=== PATIENT | male | born 1965 | race Caucasian/White ===

== ENCOUNTER 2018-08-08 10:57 | Observation (INO) | payer MEDICAID, OTHER ==
[~2018-08-08] VITALS: Ht 160 cm; Wt 86.2 kg
--- NOTE | 2018-08-08 11:18 | ERD ---
ER Documentation Chief Complaint Chief Complaint chest pain x2 days, sent fr clinic today HPI The patient is a 53-year-old male, presenting to the ER because of left-sided chest pain radiating to the left sided neck, denies similar symptoms previously, worse with walking, associated with dyspnea upon lying down. He went to the [facility] who sent him to the emergency department. He denies chest pain with vomiting/diaphoresis, dyspnea, abdominal pain, vomiting, dysuria, diarrhea. He does not smoke nor drink Past medical history: Cirrhosis, thrombocytopenia Past surgical history: Eye surgery ROS All systems reviewed and are negative except as per history of present illness. Medications Home Meds No Active Prescriptions or Reported Meds Allergies Allergies: Coded Allergies: No Known Allergy (Unverified , 08/08/18) Physical Exam Vitals Vital Signs Date Temp Pulse Resp B/P (MAP) Pulse Ox O2 O2 Flow FiO2 Time Delivery Rate 08/08/18 72 26 116/75 94 Nasal 2.0 12:12 (89) Cannula 08/08/18 Nasal 2 11:35 Cannula 08/08/18 97.3 78 20 127/65 92 11:03 (85) Physical Exam Const: No acute distress. Head: Atraumatic. Eyes: Normal Conjunctiva. ENT: Normal External Ears, Nose and Mouth. Neck: Full range of motion. No meningismus. Resp: Clear to auscultation bilaterally. Cardio: Regular rate and rhythm. Left sided chest pain with palpation Abd: Soft, non distended, normal bowel sounds, non tender. Skin: No petechiae or rashes. Back: No midline or flank tenderness. Ext: No cyanosis, or edema. Neur: Awake and alert. No focal deficit Psych: Normal Mood and Affect. Result Diagram: 08/08/18 1120 08/08/18 1235 Results 24 hrs Laboratory Tests Test 08/08/18 11:20 08/08/18 12:35 White Blood Count 4.8 10^3/ul Red Blood Count 4.12 10^6/ul Hemoglobin 14.0 g/dl Hematocrit 41.6 % Mean Corpuscular Volume 101.0 fl Mean Corpuscular Hemoglobin 34.0 pg Mean Corpuscular Hemoglobin Concent 33.7 g/dl Red Cell Distribution Width 15.0 % Platelet Count 65 10^3/UL Mean Platelet Volume 10.3 fl Immature Granulocytes % 0.600 % Neutrophils % 63.0 % Segmented Neutrophils % (Manual) 61 % Band Neutrophils % (Manual) 2 % Lymphocytes % 23.3 % Lymphocytes % (Manual) 25 % Monocytes % 11.8 % Monocytes % (Manual) 8 % Eosinophils % 1.1 % Eosinophils % (Manual) 1 % Basophils % 0.2 % Metamyelocytes % (manual) 1 % Myelocytes % (Manual) 2 % Nucleated Red Blood Cells % 0.0 /100WBC Immature Granulocytes # 0.030 10^3/ul Neutrophils # 3.0 10^3/ul Neutrophils # (Manual) 2.9 10^3/ul Band Neutrophils # 0.0 10^3/ul Lymphocytes (Manual) 1.2 10^3/ul Lymphocytes # 1.1 10^3/ul Monocytes # 0.6 10^3/ul Monocytes # (Manual) 0.3 10^3/ul Eosinophils # 0.1 10^3/ul Basophils # 0.0 10^3/ul Metamyelocytes # 0.0 10^3/ul Myelocytes # 0.0 10^3/ul Nucleated Red Blood Cells # 0.0 10^3/ul Platelet Estimate DECREASED Platelet Morphology Comment @See below Polychromasia 1+ Anisocytosis 1+ Macrocytosis 1+ D-Dimer 668.58 ng/ml D-Dimer Comment Sodium Level 138 mmol/L Potassium Level 3.4 mmol/L Chloride Level 109 mmol/L Carbon Dioxide Level 23 mmol/L Anion Gap 6 Blood Urea Nitrogen 10 mg/dl Creatinine 0.38 mg/dl Est Glomerular Filtrat Rate mL/min > 60 mL/min Glucose Level 122 mg/dl Calcium Level 8.1 mg/dl Total Bilirubin 4.0 mg/dl Direct Bilirubin 0.00 mg/dl Indirect Bilirubin 4.0 mg/dl Aspartate Amino Transf (AST/SGOT) 53 IU/L Alanine Aminotransferase (ALT/SGPT) 35 IU/L Alkaline Phosphatase 255 IU/L Troponin I < 0.012 ng/ml B-Type Natriuretic Peptide 146 PG/ML Total Protein 7.4 g/dl Albumin 3.1 g/dl Globulin 4.30 g/dl Albumin/Globulin Ratio 0.72 Lipase 59 U/L Ethyl Alcohol Level < 10.0 mg/dl Current Medications Medications Dose Sig/Jhony Start Time Status Last (Trade) Ordered Route PRN Stop Time Admin Dose Reason Admin Aspirin 162 mg ONCE ONCE 08/08/18 DC 08/08/18 (Aspirin) PO 12:30 08/08/18 12:50 12:34 1 inch ONCE ONCE 08/08/18 DC 08/08/18 Nitroglycerin TD 12:30 08/08/18 12:51 12:34 (Nitroglyceri n 2% Oint) IV Flush 10 ml STK-MED 08/08/18 DC 08/08/18 (NS 10 ml) ONCE .ROUTE 14:02 08/08/18 14:11 14:03 Sodium 100 ml @ ud STK-MED 08/08/18 DC 08/08/18 Chloride ONCE .ROUTE 14:02 08/08/18 14:16 14:03 Iohexol 100 ml @ ud STK-MED 08/08/18 DC 08/08/18 ONCE .ROUTE 14:02 08/08/18 14:14 14:03 Iohexol 50 ml STK-MED 08/08/18 DC 08/08/18 (Omnipaque ONCE .ROUTE 14:03 08/08/18 14:16 350mg/ ml) 14:04 Potassium 40 meq ONCE STAT 08/08/18 DC 08/08/18 Chloride PO 14:08 08/08/18 15:32 (Klor-Con 20) 14:11 Procedures/[place] [id number] Radiology Main Line: [phone] DIAGNOSTIC IMAGING REPORT Patient: ANGEL HASKINS : 1965 Age: 53 Sex: M MR #: [id number] DOS: 08/08/18 1126 Ordering MD: JAYLAN LINDER MD Location: E/R Room/Bed: PROCEDURE: XR Chest. CLINICAL INDICATION: shortness of breath TECHNIQUE: Single portable view of the chest was obtained COMPARISON: None FINDINGS: There is mild cardiomegaly. There is mild pulmonary vascular congestion. There are bilateral perihilar and lower lobe increased interstitial changes. There is a small left pleural effusion.. There is no pneumothorax. RPTAT: AA IMPRESSION: Mild cardiomegaly with pulmonary vascular congestion. .Neptali Marina MD, MD Date Time Electronically viewed and signed by .Neptali Marina MD, on 08/08/2018 12:46 .S/ CC: JAYLAN LINDER MD [phone] CTA chest is pending EK AM read by emergency physician Rate/Rhythm: Normal Sinus Rhythm 80 beats/min QRS, ST, T-waves: No ST elevation, inferior T abn Impression: Abnormal EKG EK:40 PM read by emergency physician Rate/Rhythm: Normal Sinus Rhythm 69 beats/min QRS, ST, T-waves: No ST elevation, inferior T abn Impression: Abnormal EKG MEDICAL MAKING DECISION: The patient is a 53-year-old male, presenting with acute chest pain that is concerning for acute ACS, was treated with aspirin 160 mg p.o., 1 inch of nitroglycerin ointment to the chest wall for acute chest pain, potassium chloride 40 mEq p.o. for acute hypokalemia with good response. The differential diagnoses considered include but are not limited to acute coronary syndrome, acute myocardial infarction, pericarditis, pulmonary embolism, aortic dissection, pneumonia, pleural effusion, pneumothorax, GERD, chest wall pain. Departure Diagnosis: Primary Impression: Chest pain Additional Impressions: Hypokalemia Thrombocytopenia Condition: Stable Comments I discussed the findings with the patient. I discussed the patient with the hospitalist Dr Ochoa at 2:10 pm who was made aware of the lab, the treatment, the patient condition. The patient is admitted to [facility] Disclaimer: Inadvertent spelling and grammatical errors are likely due to EHR/dictation software use and do not reflect on the overall quality of patient care. Also, please note that the electronic time recorded on this note does not necessarily reflect the actual time of the patient encounter. JAYLAN LINDER MD Aug 08, 2018 11:18
[2018-08-08] MEDS ORDERED: NITROGLYCERIN 2% 1 GM OINT PKT TD ONE (12:30)
[2018-08-08] MEDS ORDERED: ASPIRIN 81 MG TAB PO ONE (12:30)
[2018-08-08] MEDS ORDERED: IOHEXOL 100 ML ONE (14:02)
[2018-08-08] MEDS ORDERED: SOD CHLORIDE 0.9% 100 ML ONE (14:02)
[2018-08-08] MEDS ORDERED: IOHEXOL 350MG/ML 50 ML BTL ONE (14:03)
[2018-08-08] MEDS ORDERED: POTASSIUM CHLORIDE (SR) 20 MEQ TAB PO STA (14:08)
[2018-08-08 16:57] VITALS: BP 124/64; PULSE 74; RESP 18
[2018-08-08 17:10] VITALS: Ht 160 cm; Wt 86.2 kg
[2018-08-08 17:12] VITALS: PULSE 79
[2018-08-08] MEDS ORDERED: NACL 0.9% 3 ML SYG IV SCH (18:00)
[2018-08-08] MEDS ORDERED: ACETAMINOPHEN 325 MG TAB PO PRN (18:00)
[2018-08-08] MEDS ORDERED: HYDROCODONE/APAP (5/325) TAB PO PRN (18:00)
[2018-08-08] MEDS ORDERED: ONDANSETRON 4 MG INJ IV PRN (18:00)
[2018-08-08] MEDS ORDERED: morphine 2 MG INJ IV PRN (18:00)
[2018-08-08] MEDS ORDERED: ZOLPIDEM 5 MG TAB PO PRN (18:00)
[2018-08-08] MEDS ORDERED: NITROGLYCERIN (SL) 0.4 MG TAB SL PRN (18:00)
--- NOTE | 2018-08-08 19:04 | HP ---
Date/Time of Note Date/Time of Note DATE: 08/08/18 TIME: 18:54 Assessment/Plan VTE Prophylaxis Pharmacological prophylaxis: NA/contraindicated Pharm contraindication: low risk/ambulating Lines/Catheters IV Catheter Type (from Nrsg): Saline Lock Assessment/Plan Hospital Course 1. Atypical chest pain secondary to muscular skeletal pain tender to anxiety Pain control Rule out ACS with troponins No indication for cardiology consultation or echo 2. Anxiety Relaxation measures advised Prophylaxis: Ambulation Result Diagram: 08/08/18 1120 08/08/18 1235 Results 24hrs Laboratory Tests Test 08/08/18 11:20 08/08/18 12:35 08/08/18 17:16 White Blood Count 4.8 Red Blood Count 4.12 L Hemoglobin 14.0 Hematocrit 41.6 L Mean Corpuscular Volume 101.0 Mean Corpuscular Hemoglobin 34.0 H Mean Corpuscular Hemoglobin Concent 33.7 Red Cell Distribution Width 15.0 H Platelet Count 65 L Mean Platelet Volume 10.3 Immature Granulocytes % 0.600 H Neutrophils % 63.0 Segmented Neutrophils % (Manual) 61 Band Neutrophils % (Manual) 2 Lymphocytes % 23.3 Lymphocytes % (Manual) 25 Monocytes % 11.8 H Monocytes % (Manual) 8 Eosinophils % 1.1 Eosinophils % (Manual) 1 Basophils % 0.2 Metamyelocytes % (manual) 1 H Myelocytes % (Manual) 2 H Nucleated Red Blood Cells % 0.0 Immature Granulocytes # 0.030 Neutrophils # 3.0 Neutrophils # (Manual) 2.9 Band Neutrophils # 0.0 Lymphocytes (Manual) 1.2 Lymphocytes # 1.1 Monocytes # 0.6 Monocytes # (Manual) 0.3 Eosinophils # 0.1 Basophils # 0.0 Metamyelocytes # 0.0 Myelocytes # 0.0 Nucleated Red Blood Cells # 0.0 Platelet Estimate DECREASED Platelet Morphology Comment @See below Polychromasia 1+ Anisocytosis 1+ Macrocytosis 1+ D-Dimer 668.58 H D-Dimer Comment Sodium Level 138 Potassium Level 3.4 L Chloride Level 109 Carbon Dioxide Level 23 Anion Gap 6 Blood Urea Nitrogen 10 Creatinine 0.38 L Est Glomerular Filtrat Rate mL/min > 60 Glucose Level 122 Calcium Level 8.1 L Total Bilirubin 4.0 H Direct Bilirubin 0.00 Indirect Bilirubin 4.0 H Aspartate Amino Transf (AST/SGOT) 53 H Alanine Aminotransferase (ALT/SGPT) 35 Alkaline Phosphatase 255 H Troponin I < 0.012 < 0.012 B-Type Natriuretic Peptide 146 H Total Protein 7.4 Albumin 3.1 L Globulin 4.30 H Albumin/Globulin Ratio 0.72 Lipase 59 Ethyl Alcohol Level < 10.0 H Creatine Kinase 78 Creatine Kinase Index 1.0 Creatinine Kinase MB (Mass) 0.75 HPI/ROS Admit Date/Time Admit Date/Time Aug 08, 2018 at 14:45 Hx of Present Illness Patient is a 53-year-old male with a history of anxiety who presents with 2 days of chest pain. Patient reports his usual baseline anxiety, patient denies any heavy weight lifting. In the ER EKG and troponins are negative. ROS Constitutional: no complaints, improved Eyes: no complaints ENT: no complaints Respiratory: no complaints Cardiovascular: chest pain Gastrointestinal: no complaints Genitourinary: no complaints Musculoskeletal: no complaints Skin: no complaints Neurologic: no complaints Endocrine: no complaints Lymphatic: no complaints Psychological: anxiety Immunologic: no complaints PMH/Family/Social Past Medical History Medical History: no pertinent history Medications Current Medications IV Flush (NS 3 ml) 3 ml PER PROTOCOL IV ; Start 08/08/18 at 18:00 Ondansetron HCl (Zofran Inj) 4 mg Q6H PRN IV NAUSEA/VOMITING; Start 08/08/18 at 18:00 Acetaminophen (Tylenol Tab) 650 mg Q6H PRN PO .PAIN 1-3 OR TEMP; Start 08/08/18 at 18:00 Acetaminophen/ Hydrocodone Bitart ([place] (5/325)) 1 tab Q6H PRN PO .MOD PAIN 4- 6; Start 08/08/18 at 18:00 Morphine Sulfate (morphine) 2 mg Q4H PRN IV .SEVERE PAIN 7-10 Last administered on 08/08/18at 18:40; Admin Dose 2 MG; Start 08/08/18 at 18:00 Zolpidem Tartrate (Ambien) 5 mg QHS PRN PO .INSOMNIA; Start 08/08/18 at 18:00 Aspirin (Aspirin) 81 mg DAILY PO ; Start 08/10/18 at 09:00 Carvedilol (Coreg) 6.25 mg BID PO ; Start 08/08/18 at 21:00 Nitroglycerin (Nitroglycerin (Sl Tab) 0.4 Mg) 1 tab Q5M PRN SL CHEST PAIN; Start 08/08/18 at 18:00 Coded Allergies: No Known Allergy (Unverified , 08/08/18) Past Surgical History Past Surgical Hx: no surgical history Family History Significant Family History: cancer Social History Alcohol Use: none Smoking Status: Former smoker Drug Use: none Exam/Review of Systems Vital Signs Vitals Vital Signs Date Temp Pulse Resp B/P (MAP) Pulse Ox O2 O2 Flow FiO2 Time Delivery Rate 08/08/18 79 17:12 08/08/18 Nasal 2.0 16:59 Cannula 08/08/18 98.7 18 124/64 94 16:57 (84) Exam Constitutional: alert, oriented Psych: anxiety Respiratory: clear to auscultation Cardiovascular: regular rate and rhythm Gastrointestinal: soft; No distended Musculoskeletal: other (Tenderness to palpation in the chest) NATASHA ZHONG Aug 08, 2018 19:04
[2018-08-08 20:00] VITALS: BP 111/59; PULSE 84; RESP 19
[2018-08-09] VITALS (10 sets, daily range): BP systolic 93–114; BP diastolic 51–59; PULSE 55–93; RESP 20–22
--- NOTE | 2018-08-09 12:12 | PN ---
Date/Time of Note Date/Time of Note DATE: 08/09/18 TIME: 12:10 Assessment/Plan VTE Prophylaxis Risk score (from Nsg)>0 risk: 1 SCD applied (from Nsg): No SCD contraindicated: low risk/ambulating Pharmacological prophylaxis: LMWH Lines/Catheters IV Catheter Type (from Nrsg): Saline Lock Assessment/Plan Hospital Course Assessment and plan 1. Chest pain, troponins negative. EKG concerning for inferior wall age undetermined injury. Will schedule for stress test 2. Pneumonia? 3. Varices? 4. Past tobacco 5. Peripheral edema: Patient does a lot of standing while at work in the [employer] 6. Anxiety disorder? S: Substernal chest pain possibly radiating to right arm. Associated minimal activity. Denies any chest wall injury travel fever. O: vss sinus rhythm Physical exam No pallor JVD Regular no m/r/g Clear tender Benign Mild edema Result Diagram: 08/09/18 0620 08/09/18 0620 Results 24hrs Laboratory Tests Test 08/08/18 12:35 08/08/18 17:16 08/08/18 23:05 08/08/18 23:19 Sodium Level 138 Potassium Level 3.4 L Chloride Level 109 Carbon Dioxide Level 23 Anion Gap 6 Blood Urea Nitrogen 10 Creatinine 0.38 L Est Glomerular Filtrat > 60 Rate mL/min Glucose Level 122 Calcium Level 8.1 L Total Bilirubin 4.0 H Direct Bilirubin 0.00 Indirect Bilirubin 4.0 H Aspartate Amino 53 H Transf (AST/SGOT) Alanine 35 Aminotransferase (ALT/SG PT) Alkaline Phosphatase 255 H Troponin I < 0.012 < 0.012 < 0.012 B-Type Natriuretic 146 H Peptide Total Protein 7.4 Albumin 3.1 L Globulin 4.30 H Albumin/Globulin Ratio 0.72 Lipase 59 Ethyl Alcohol Level < 10.0 H Creatine Kinase 78 58 Creatine Kinase Index 1.0 0.7 Creatinine Kinase MB 0.75 0.43 (Mass) Urine Opiates Screen Positive Urine Barbiturates Negative Urine Amphetamines Negative Screen Urine Benzodiazepines Negative Screen Urine Cocaine Screen Negative Urine Cannabinoids Negative Test 08/09/18 06:20 White Blood Count 6.5 # Red Blood Count 3.52 L Hemoglobin 12.0 L Hematocrit 35.1 L Mean Corpuscular Volume 99.7 Mean Corpuscular 34.1 H Hemoglobin Mean Corpuscular 34.2 Hemoglobin Concent Red Cell Distribution 13.8 Width Platelet Count 52 L Mean Platelet Volume 10.4 Immature Granulocytes % 0.500 H Neutrophils % 62.4 Lymphocytes % 25.4 Monocytes % 10.4 Eosinophils % 1.1 Basophils % 0.2 Nucleated Red Blood 0.0 Cells % Immature Granulocytes # 0.030 Neutrophils # 4.0 Lymphocytes # 1.6 Monocytes # 0.7 Eosinophils # 0.1 Basophils # 0.0 Nucleated Red Blood 0.0 Cells # Sodium Level 136 Potassium Level 4.0 Chloride Level 108 Carbon Dioxide Level 24 Anion Gap 4 L Blood Urea Nitrogen 13 Creatinine 0.53 L Est Glomerular Filtrat > 60 Rate mL/min Glucose Level 114 Hemoglobin A1c 5.1 Calcium Level 7.7 L Phosphorus Level 2.5 Magnesium Level 1.9 Triglycerides Level 76 Cholesterol Level 111 LDL Cholesterol, 58 Calculated HDL Cholesterol 38 Cholesterol/HDL Ratio 2.9 Exam/Review of Systems Exam Vitals Vital Signs Date Temp Pulse Resp B/P (MAP) Pulse Ox O2 O2 Flow FiO2 Time Delivery Rate 08/09/18 98.5 56 20 103/55 94 11:12 (71) 08/09/18 Nasal 04:00 Cannula 08/08/18 2.0 16:59 Intake and Output 08/08/18 08/08/18 08/09/18 1414:59 22:59 06:59 IntakeIntake Total 440 ml 500 ml OutputOutput Total 350 ml BalanceBalance 440 ml 150 ml Results Results 24hrs Laboratory Tests Test 08/08/18 12:35 08/08/18 17:16 08/08/18 23:05 08/08/18 23:19 Sodium Level 138 Potassium Level 3.4 L Chloride Level 109 Carbon Dioxide Level 23 Anion Gap 6 Blood Urea Nitrogen 10 Creatinine 0.38 L Est Glomerular Filtrat > 60 Rate mL/min Glucose Level 122 Calcium Level 8.1 L Total Bilirubin 4.0 H Direct Bilirubin 0.00 Indirect Bilirubin 4.0 H Aspartate Amino 53 H Transf (AST/SGOT) Alanine 35 Aminotransferase (ALT/SG PT) Alkaline Phosphatase 255 H Troponin I < 0.012 < 0.012 < 0.012 B-Type Natriuretic 146 H Peptide Total Protein 7.4 Albumin 3.1 L Globulin 4.30 H Albumin/Globulin Ratio 0.72 Lipase 59 Ethyl Alcohol Level < 10.0 H Creatine Kinase 78 58 Creatine Kinase Index 1.0 0.7 Creatinine Kinase MB 0.75 0.43 (Mass) Urine Opiates Screen Positive Urine Barbiturates Negative Urine Amphetamines Negative Screen Urine Benzodiazepines Negative Screen Urine Cocaine Screen Negative Urine Cannabinoids Negative Test 08/09/18 06:20 White Blood Count 6.5 # Red Blood Count 3.52 L Hemoglobin 12.0 L Hematocrit 35.1 L Mean Corpuscular Volume 99.7 Mean Corpuscular 34.1 H Hemoglobin Mean Corpuscular 34.2 Hemoglobin Concent Red Cell Distribution 13.8 Width Platelet Count 52 L Mean Platelet Volume 10.4 Immature Granulocytes % 0.500 H Neutrophils % 62.4 Lymphocytes % 25.4 Monocytes % 10.4 Eosinophils % 1.1 Basophils % 0.2 Nucleated Red Blood 0.0 Cells % Immature Granulocytes # 0.030 Neutrophils # 4.0 Lymphocytes # 1.6 Monocytes # 0.7 Eosinophils # 0.1 Basophils # 0.0 Nucleated Red Blood 0.0 Cells # Sodium Level 136 Potassium Level 4.0 Chloride Level 108 Carbon Dioxide Level 24 Anion Gap 4 L Blood Urea Nitrogen 13 Creatinine 0.53 L Est Glomerular Filtrat > 60 Rate mL/min Glucose Level 114 Hemoglobin A1c 5.1 Calcium Level 7.7 L Phosphorus Level 2.5 Magnesium Level 1.9 Triglycerides Level 76 Cholesterol Level 111 LDL Cholesterol, 58 Calculated HDL Cholesterol 38 Cholesterol/HDL Ratio 2.9 Medications Medication Current Medications IV Flush (NS 3 ml) 3 ml PER PROTOCOL IV ; Start 08/08/18 at 18:00 Ondansetron HCl (Zofran Inj) 4 mg Q6H PRN IV NAUSEA/VOMITING; Start 08/08/18 at 18:00 Acetaminophen (Tylenol Tab) 650 mg Q6H PRN PO .PAIN 1-3 OR TEMP; Start 08/08/18 at 18:00 Acetaminophen/ Hydrocodone Bitart ([place] (5/325)) 1 tab Q6H PRN PO .MOD PAIN 4- 6; Start 08/08/18 at 18:00 Morphine Sulfate (morphine) 2 mg Q4H PRN IV .SEVERE PAIN 7-10 Last administered on 08/08/18at 18:40; Admin Dose 2 MG; Start 08/08/18 at 18:00 Zolpidem Tartrate (Ambien) 5 mg QHS PRN PO .INSOMNIA; Start 08/08/18 at 18:00 Aspirin (Aspirin) 81 mg DAILY PO ; Start 08/10/18 at 09:00 Carvedilol (Coreg) 6.25 mg BID PO Last administered on 08/08/18at 21:19; Admin Dose 6.25 MG; Start 08/08/18 at 21:00 Nitroglycerin (Nitroglycerin (Sl Tab) 0.4 Mg) 1 tab Q5M PRN SL CHEST PAIN; Start 08/08/18 at 18:00 CLARK HEREDIA MD Aug 09, 2018 12:12
[2018-08-09] MEDS ORDERED: ONDANSETRON 4 MG INJ IV PRN (12:30)
[2018-08-09] MEDS: ARTIFICIAL TEARS 15 ML OPH BOTH EYES PRN (23:29)
[2018-08-10] VITALS (9 sets, daily range): BP systolic 100–120; BP diastolic 57–65; PULSE 68–87; RESP 20
[2018-08-10] MEDS ORDERED: ASPIRIN 81 MG TAB PO SCH (09:00)
[2018-08-10] MEDS ORDERED: REGADENOSON 0.4 MG/5 ML SYG ONE (11:29)
[2018-08-10] MEDS: ARTIFICIAL TEARS 15 ML OPH BOTH EYES PRN (15:06)
--- NOTE | 2018-08-10 15:36 | CARRPT ---
DATE OF PROCEDURE: 08/10/2018 TYPE OF PROCEDURE: Lexiscan Cardiolite stress test, electrocardiogram portion. REASON FOR STRESS TESTING: Chest pain, assess for ischemia. BASELINE VITAL SIGNS AND ELECTROCARDIOGRAM: Pulse 65, blood pressure 122/73. Electrocardiogram show s normal sinus rhythm, rate 67, normal axis, normal intervals, isolated T-wave flattening in lead aVL . PROCEDURE IN DETAILS: The patient underwent standard Lexiscan infusion protocol for 10 seconds follo wed by radiolabeled tracer. The patient's test was stopped at completion of protocol. Maximal achiev ed blood pressure during the test was 122/67. Maximum heart rate during the test was 86. ELECTROCARDIOGRAM FINDINGS: The patient did not develop any new Lexiscan-induced ST or T-wave change s from baseline abnormalities. No documented PVCs. SYMPTOMS: The patient had no complaints of chest pain, shortness of breath during stress testing. IMPRESSION: 1. No Lexiscan-induced ST or T-wave changes from baseline abnormalities diagnostic of cardiac ischem ia. 2. No complaints of chest pain or shortness of breath during stress testing. 3. No documented premature ventricular contractions during stress testing. 4. Report of nuclear images to follow in a separate dictation. Dictated By: STEPHANIE LAIRD/NTS Conf#: [id number] DID#: [id number] CC: NATASHA ZHONG MD; CLARK HEREDIA MD;*End*
--- NOTE | 2018-08-10 18:04 | PDOCDIS ---
Discharge Instructions CONDITION [id number] Patient Condition: [id number] Stable HOME CARE INSTRUCTIONS: [id number] Diet Instructions: [id number] Regular ACTIVITY: [id number] Activity Restrictions: Thimo0s Slowly Increase Activity FOLLOW UP/APPOINTMENTS Follow-up Plan appt pcp 1CLARK Perea MD Aug 10, 2018 18:04
[2018-08-10] MEDS ORDERED: POLY15DR11 BOTH EYES (18:06)
[2018-08-10] MEDS ORDERED: LEVO500T10 PO (18:06)
[2018-08-10] MEDS ORDERED: ACET325T33 PO (18:06)
[2018-08-10] MEDS ORDERED: CARV6.2579 PO (18:06)
--- NOTE | 2018-08-10 19:03 | DS ---
Date/Time of Note Date/Time of Note DATE: 08/10/18 TIME: 18:52 Discharge Summary Admission/Discharge Info Admit Date/Time Aug 08, 2018 at 14:45 Discharge Date/Time Patient Condition: Stable Consults CXR- negative STRESS T- negative Procedures CXR IMPRESSION: Mild cardiomegaly with pulmonary vascular congestion. CTA IMPRESSION: No CT evidence for pulmonary embolus. There is no aortic dissection. Left lower lobe consolidation as likely consistent with pneumonia. Atherosclerotic disease is present. There is cardiomegaly with trace left effusion and septal thickening and ground- glass suggestive for mild pulmonary edema. Right lower lobe partial atelectasis is present. 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 Stress Test IMPRESSION: 1. No evidence of perfusion defects. 2. No wall motion abnormalities. 3. The left venricle ejection fraction at stress is 67%. Hx of Present Illness 53yr M w chest pain Hospital Course Hospitalist Course/ Assessment and plan 1. Chest pain, troponins/ EKG concerning for inf wall age undetermined injury. Stress test negative. 2. Pneumonia? 3. Varices? 4. Past tobacco 5. 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 Anxiety disorder? S: 08/09 Substernal chest pain possibly radiating to right arm. Assoc minimal activity. Denies any chest wall injury travel fever. 08/10 stable discharge home O: vss sinus rhythm PE No pallor JVD Regular no m/r/g Clear tender Benign Mild edema Home Meds Active Scripts Levofloxacin* (Levofloxacin*) 500 Mg Tablet, 500 MG PO DAILY for 5 Days, TAB Prov:CLARK HEREDIA MD 08/10/18 Polyvinyl Alcohol* (Akwa Tears*) 1.4% - 15 Ml Drops, 2 DROP BOTH EYES Q6H PRN for DRY EYES for 1 Day, BOTTLE Prov:CLARK HEREDIA MD 08/10/18 Acetaminophen* (Tylenol*) 325 Mg Tablet, 650 MG PO Q6H PRN for .PAIN 1-3 OR TEMP for 1 Day, TAB Prov:CLARK HEREDIA MD 08/10/18 Carvedilol* (Carvedilol*) 6.25 Mg Tablet, 6.25 MG PO BID for 14 Days, #30 TAB Prov:CLARK HEREDIA MD 08/10/18 Follow-up Plan appt pcp 1wk Primary Care Provider Jimena Ochoa Time spent on discharge: < 30 minutes Pending Labs Laboratory Tests Test 08/10/18 05:52 White Blood Count 4.4 10^3/ul (4.8-10.8) Red Blood Count 3.72 10^6/ul (4.70-6.10) Hemoglobin 12.8 g/dl (14.0-18.0) Hematocrit 37.7 % (42.0-52.0) Mean Corpuscular Volume 101.3 fl (82.0-101.0) Mean Corpuscular Hemoglobin 34.4 pg (29.0-33.0) Mean Corpuscular Hemoglobin Concent 34.0 g/dl (32.0-37.0) Red Cell Distribution Width 13.9 % (11.5-14.5) Platelet Count 61 10^3/UL (140-415) Mean Platelet Volume 10.3 fl (7.4-10.4) Immature Granulocytes % 0.500 % (0.001-0.429) Neutrophils % 49.1 % (39.0-77.0) Lymphocytes % 33.8 % (15.0-51.0) Monocytes % 11.6 % (0.0-11.0) Eosinophils % 4.8 % (0.0-7.0) Basophils % 0.2 % (0.0-2.0) Nucleated Red Blood Cells % 0.0 /100WBC (0.0-0.0) Immature Granulocytes # 0.020 10^3/ul (0.0-0.031) Neutrophils # 2.2 10^3/ul (1.6-7.5) Lymphocytes # 1.5 10^3/ul (0.8-2.9) Monocytes # 0.5 10^3/ul (0.3-0.9) Eosinophils # 0.2 10^3/ul (0.0-0.5) Basophils # 0.0 10^3/ul (0.0-0.1) Nucleated Red Blood Cells # 0.0 10^3/ul (0.0-0.0) Sodium Level 136 mmol/L (135-144) Potassium Level 3.9 mmol/L (3.5-5.1) Chloride Level 106 mmol/L (97-110) Carbon Dioxide Level 26 mmol/L (21-31) Anion Gap 4 (5-13) Blood Urea Nitrogen 15 mg/dl (7-20) Creatinine 0.53 mg/dl (0.61-1.24) Est Glomerular Filtrat Rate mL/min > 60 mL/min (>60) Glucose Level 101 mg/dl (70-220) Calcium Level 7.8 mg/dl (8.4-10.2) Magnesium Level 1.7 mg/dl (1.7-2.5) Total Bilirubin 1.7 mg/dl (0.2-1.3) Direct Bilirubin 0.00 mg/dl (0.00-0.20) Indirect Bilirubin 1.7 mg/dl (0-1.1) Aspartate Amino Transf (AST/SGOT) 36 IU/L (15-46) Alanine Aminotransferase (ALT/SGPT) 35 IU/L (13-69) Alkaline Phosphatase 155 IU/L (42-121) Total Protein 6.7 g/dl (6.1-8.1) Albumin 2.7 g/dl (3.3-4.9) Globulin 4.00 g/dl (1.3-3.2) Albumin/Globulin Ratio 0.67 Thyroid Stimulating Hormone (TSH) 2.070 MIU/L (0.465-4.680) CLARK HEREDIA MD Aug 10, 2018 19:03
== END 2018-08-10 19:40 | disposition home or self-care (01) ==
LOC: E/R 10:57 → TEL 14:45
PROVIDERS: ADMIT Internal Medicine; ATTEND Internal Medicine
DX: R07.89 Other chest pain (principal); I51.7 Cardiomegaly; R60.9 Edema, unspecified; R91.8 Other nonspecific abnormal finding of lung field
CPT/HCPCS: 36415; 71045; 71275; 78452; 80048; 80053; 80061; 80307; 82550; 82553; 83036; 83690; 83735; 83880; 84100; 84443; 84484; 85025; 85378; 93005; 93017; A9500; A9505; J2270; J2785; Q9967; Z7500; Z7502; Z7610; G0378